=== PATIENT | female | born 1930 | race Caucasian/White ===

== ENCOUNTER 2019-10-05 12:06 | Emergency (ER) | payer MEDICARE ==
[~2019-10-05] VITALS: Ht 165.1 cm; Wt 76.0 kg
[2019-10-05 12:10] VITALS: BP 150/79
[2019-10-05 13:13] LABS: BASO # 0.1 x10^3/uL (0.0-0.2); BASO % 2 % (0-3); EOS # 0.1 x10^3/uL (0.0-0.7); EOS % 2 % (0-3); HEMOGLOBIN 13.5 g/dL (12.0-15.5); LYMPH # 0.9 x10^3/uL (1.0-4.8); LYMPH % 19 % (24-48); MEAN CORPUSCULAR HEMOGLOBIN 31 pg (25-35); MEAN CORPUSCULAR HGB CONC 33 g/dL (31-37); MEAN CORPUSCULAR VOLUME 94 fL (79-100); MONO # 0.2 x10^3/uL (0.0-1.1); MONO % 5 % (0-9); NEUT # 3.2 x10^3uL (1.8-7.7); NEUT % 71 % (31-73); PLATELET COUNT 126 x10^3/uL (140-400); RED BLOOD COUNT 4.35 x10^6/uL (3.50-5.40); RED CELL DISTRIBUTION WIDTH 15.3 % (11.5-14.5); WHITE BLOOD COUNT 4.5 x10^3/uL (4.0-11.0)
--- NOTE | 2019-10-05 13:15 | PHYS DOC ---
General Adult EDM: Chief Complaint: PSYCH EVALUATION HPI: HPI: 89 yo F PMH dementia, presents to the ed brought in by son with concern for worsening dementia, increased agitation at nighttime -discussions were made about snf/geriatric admission, son came to ed for "clearance." H/o UTI in early August. ROS: Unable to be obtained-h/o dementia Allergies: Allergies: Allergies Coded Allergies Type Severity Reaction Last Updated Verified No Known Drug Allergies 10/05/19 No Physical Exam: PE: Constitutional: Well developed, well nourished, no acute distress, non-toxic appearance. [] HENT: Normocephalic, atraumatic, bilateral external ears normal, oropharynx moist, no oral exudates, nose normal. [] Eyes: PERRLA, EOMI, conjunctiva normal, no discharge. [] Neck: Normal range of motion, no tenderness, supple, no stridor. [] Cardiovascular:Heart rate regular rhythm, no murmur [] Lungs & Thorax: Bilateral breath sounds clear to auscultation [] Abdomen: Bowel sounds normal, soft, no tenderness, no masses, no pulsatile masses. [] Skin: Warm, dry, no erythema, no rash. [] Back: No tenderness, no CVA tenderness. [] Extremities: No tenderness, no cyanosis, no clubbing, ROM intact, no edema. right forearm ecchymosis Neurologic: Alert and oriented X 3, normal motor function, normal sensory function, no focal deficits noted. [] Psychologic: Affect normal, judgement normal, mood normal. [] EKG: EKG: [] Radiology/Procedures: Radiology/Procedures: IMAGING REPORT Signed PATIENT: SANDEE MOJICA ACCOUNT: [id number] : 1930 LOCATION: ER AGE: 89 SEX: F EXAM STATUS: REG ER ORD. PHYSICIAN: MARCUS HERNANDEZ DO REASON: dementia? PROCEDURE: CT HEAD WO CONTRAST CT HEAD WO CONTRAST History: Reason: dementia / Spl. Instructions: / History: Comparison: None. Technique: Noncontrast CT imaging was performed of the head. Exposure: One or more of the following individualized dose reduction techniques were utilized for this examination: 1. Automated exposure control 2. Adjustment of the mA and/or kV according to patient size 3. Use of iterative reconstruction technique. Findings: No intracranial hemorrhage. No mass effect. No hydrocephalus. Moderate brain parenchymal volume loss. Mild foci of decreased aeration within the hemispheric white matter, most often due to chronic microvascular ischemia. Imaged orbits are unremarkable. Left sphenoid sinus osteoma. Mastoid air cells are clear. TMJ arthropathy. No acute calvarial fracture. Impression: 1. No acute intracranial abnormality. 2. Brain parenchymal volume loss. Electronically signed by: Jose D Liu DO (10/05/2019 1:48 PM) [id number] DICTATED AND SIGNED BY: JOSE D LIU DO DATE: 10/05/191347 CC: MADELEINE LARES MD; MARCUS HERNANDEZ DO ~ IMAGING REPORT Signed PATIENT: SANDEE MOJICA ACCOUNT: [id number] : 1930 LOCATION: ER AGE: 89 SEX: F EXAM STATUS: REG ER ORD. PHYSICIAN: MARCUS HERNANDEZ DO REASON: dementia/confusion PROCEDURE: CHEST AP ONLY CHEST AP ONLY History: Reason: dementia/confusion / Spl. Instructions: / History: Comparison: None. Findings: No consolidation or pleural effusion. Normal heart size. No pneumothorax. Postoperative changes left axilla. Bilateral glenohumeral DJD with calcified intra-articular bodies. Mild right basilar linear atelectasis. Prior granulomatous disease within the chest. Age-indeterminate right posterior 10th rib fracture. Chronic right ninth rib fracture. Impression: 1. No acute cardiopulmonary process. 2. Right posterior 10th rib fracture, likely chronic although age indeterminant. Recommend correlation with point tenderness. Electronically signed by: Jose D Liu DO (10/05/2019 1:42 PM) [id number] DICTATED AND SIGNED BY: JOSE D LIU DO DATE: 10/05/191341 CC: MADELEINE LARES MD; MARCUS HERNANDEZ DO ~ IMAGING REPORT Signed PATIENT: SANDEE MOJICA ACCOUNT: [id number] : 1930 LOCATION: ER AGE: 89 SEX: F EXAM STATUS: REG ER ORD. PHYSICIAN: MARCUS HERNANDEZ DO REASON: proximal bruising PROCEDURE: FOREARM RIGHT FOREARM RIGHT History: Reason: proximal bruising / Spl. Instructions: / History: Technique: 2 views right forearm. Comparison: None. Findings: Normal alignment. No fracture. Advanced first carpal metacarpal triscaphe DJD. First interphalangeal degenerative changes. Soft tissues unremarkable. Impression: 1. No acute osseous abnormality. 2. Advanced first carpometacarpal and triscaphe DJD. Electronically signed by: Jose D Liu DO (10/05/2019 1:39 PM) [id number] DICTATED AND SIGNED BY: JOSE D LIU DO DATE: 10/05/19 7186 CC: MADELEINE LARES MD; MARCUS HERNANDEZ DO ~ Course & Med Decision Making: Course & Med Decision Making Pertinent Labs and Imaging studies reviewed. (See chart for details) Encounter for clearance for inpatient geriatric psych admission -UA unremarkable. CT of the head shows no acute pathology. Patient with no posterior right rib pain-likely chronic right posterior rib fracture. I discussed findings with patient son at bedside. Will dc home with outpt neurology and pmd followup. COVID test pending for geriatric psych admission. Life-threatening processes were considered but are low suspicion at this time, given history and physical exam. All patient's questions were answered and pt was stable at time of discharge. Differential includes intracranial hemorrhage, diffuse axonal injury, spinal cord syndrome, unstable cervical fracture or SCIWORA, fractures or joint dislocations, neurovascular injuries, organ injury laceration, pneumothorax, pneumoperitoneum, pericardial tamponade, unstable pelvic fracture, compartment syndrome, flail chest or respiratory distress, burn injury or asphyxiation I spoken with the patient and her caregivers. I explained the patient's condition, diagnoses and treatment plan based on the information available to me at this time. I have answered the patient and her caregiver's questions and addressed any concerns. The patient and her caregivers have a good understanding of patient's diagnosis, condition and treatment plan as can be expected at this point. Vital signs have been stable. Patient's condition is stable and appropriate for discharge from the emergency department. Patient will pursue further outpatient evaluation with primary care physician or other designated or consulting physician as outlined in the discharge instru ctions. The patient and/or caregivers are agreeable to this plan of care and follow-up instructions have been explained in detail. The patient and/or caregivers have received these instructions in written form and have expressed an understanding of the discharge instructions. The patient and/or caregivers are aware that any significant change of condition or worsening of symptoms should prompt immediate return to this or the closest emergency department or call to 911. Adalid Disclaimer: Adalid Disclaimer: This electronic medical record was generated, in whole or in part, using a voice recognition dictation system. Departure Departure: Impression: Primary Impression: Dementia Additional Impression: Medical clearance for psychiatric admission Disposition: HOME/RESIDENCE PRIOR TO ADM Condition: STABLE Referrals: MADELEINE LARES MD (PCP) Patient Instructions: Dementia Additional Instructions: Madeleine Pena MD-neurology [address] [facility], [address] [address] Justification of Admission: Justification of Admission: Justification of Admission Dx: N/A MARCUS HERNANDEZ DO Oct 05, 2019 13:15
[2019-10-05 13:16] LABS: CALCIUM 8.9 mg/dL (8.5-10.1); GFR 52.2; POTASSIUM 4.1 mmol/L (3.5-5.1)
[2019-10-05 13:23] LABS: ALBUMIN 3.6 g/dL (3.4-5.0); ALBUMIN/GLOBULIN RATIO 1.1 (1.0-1.7); TOTAL BILIRUBIN 1.2 mg/dL (0.2-1.0)
[2019-10-05 13:27] LABS: BACTERIA,URINE 0 /HPF (0-FEW); BILIRUBIN,URINE NEG (NEG); CLARITY,URINE CLEAR; COLOR,URINE YELLOW; GLUCOSE,URINE NEG (NEG); NITRITE,URINE NEG (NEG); RBC,URINE 0 /HPF (0-2); SQUAMOUS EPITHELIAL CELL,UR FEW /LPF; UROBILINOGEN,URINE 0.2 mg/dL (0.2 mg/dL); WBC,URINE RARE /HPF (0-4)
--- NOTE | 2019-10-05 13:42 | RAD ---
FOREARM RIGHT History: Reason: proximal bruising / Spl. Instructions: / History: Technique: 2 views right forearm. Comparison: None. Findings: Normal alignment. No fracture. Advanced first carpal metacarpal triscaphe DJD. First interphalangeal degenerative changes. Soft tissues unremarkable. Impression: 1. No acute osseous abnormality. 2. Advanced first carpometacarpal and triscaphe DJD. Electronically signed by: Jose D Liu DO (10/05/2019 1:39 PM) [id number]
--- NOTE | 2019-10-05 13:45 | RAD ---
CHEST AP ONLY History: Reason: dementia/confusion / Spl. Instructions: / History: Comparison: None. Findings: No consolidation or pleural effusion. Normal heart size. No pneumothorax. Postoperative changes left axilla. Bilateral glenohumeral DJD with calcified intra-articular bodies. Mild right basilar linear atelectasis. Prior granulomatous disease within the chest. Age-indeterminate right posterior 10th rib fracture. Chronic right ninth rib fracture. Impression: 1. No acute cardiopulmonary process. 2. Right posterior 10th rib fracture, likely chronic although age indeterminant. Recommend correlation with point tenderness. Electronically signed by: Jose D Liu DO (10/05/2019 1:42 PM) [id number]
--- NOTE | 2019-10-05 13:51 | RAD ---
CT HEAD WO CONTRAST History: Reason: dementia / Spl. Instructions: / History: Comparison: None. Technique: Noncontrast CT imaging was performed of the head. Exposure: One or more of the following individualized dose reduction techniques were utilized for this examination: 1. Automated exposure control 2. Adjustment of the mA and/or kV according to patient size 3. Use of iterative reconstruction technique. Findings: No intracranial hemorrhage. No mass effect. No hydrocephalus. Moderate brain parenchymal volume loss. Mild foci of decreased aeration within the hemispheric white matter, most often due to chronic microvascular ischemia. Imaged orbits are unremarkable. Left sphenoid sinus osteoma. Mastoid air cells are clear. TMJ arthropathy. No acute calvarial fracture. Impression: 1. No acute intracranial abnormality. 2. Brain parenchymal volume loss. Electronically signed by: Jose D Liu DO (10/05/2019 1:48 PM) [id number]
== END 2019-10-05 15:29 | disposition home or self-care (01) ==
LOC: ER 12:06
DX: S50.11XA Contusion of right forearm, initial encounter (principal); Z00.8 Encounter for other general examination; F03.90 Unspecified dementia, unspecified severity, without behavioral disturbance, psychotic disturbance, mood disturbance, and anxiety; Z03.818 Encounter for observation for suspected exposure to other biological agents ruled out; Z87.440 Personal history of urinary (tract) infections; X58.XXXA Exposure to other specified factors, initial encounter; Y93.89 Activity, other specified; Y92.89 Other specified places as the place of occurrence of the external cause; Y99.8 Other external cause status
CPT/HCPCS: 36415; 70450; 71045; 73090; 80053; 81001; 84484; 85025; 99285; U0003

== ENCOUNTER 2019-10-10 09:00 | Inpatient (IN) | payer MEDICARE ==
[~2019-10-10] VITALS: Ht 167.6 cm; Wt 67.1 kg
[2019-10-10 10:32] VITALS: BP 101/65
[2019-10-10] MEDS ORDERED: MAG HYDROX/AL HYDROX/SIMETH 30 ML ORAL.SUSP PO PRN (11:00)
[2019-10-10] MEDS ORDERED: METHYL SALICYLATE/MENTHOL TOPICAL OINTMENT 57GM TUBE. TP PRN (11:00)
[2019-10-10] MEDS ORDERED: MAGNESIUM HYDROXIDE 2,400 MG/30 ML ORAL.SUSP. PO PRN (11:00)
[2019-10-10] MEDS ORDERED: ACETAMINOPHEN 325 MG TABLET PO PRN (11:30)
[2019-10-10] MEDS ORDERED: ACETAMINOPHN PO PRN (11:30)
[2019-10-10] MEDS ORDERED: [UNRECOGNIZED DRUG - OTHER] PO PRN (11:30)
[2019-10-10] MEDS ORDERED: LOPERAMIDE 2 MG/15 ML ORAL SUSP. PO PRN (11:30)
[2019-10-10] MEDS ORDERED: GUAIFEN PO PRN (11:30)
[2019-10-10] MEDS ORDERED: PHENYLEPH PO PRN (11:30)
[2019-10-10] MEDS ORDERED: DICLOFENAC SODIUM 1% TOPICAL GEL 100GM TUBE. TP PRN (11:30)
[2019-10-10] MEDS ORDERED: ESCITALOPRAM OX10 MG PO (11:40)
[2019-10-10] MEDS ORDERED: DICL100G18 TP (11:40)
[2019-10-10] MEDS ORDERED: ASPI325T8 PO (11:40)
[2019-10-10] MEDS ORDERED: ACET325T9 PO (11:40)
[2019-10-10] MEDS ORDERED: LOPE1LIQ7 PO (11:40)
[2019-10-10] MEDS ORDERED: [UNRECOGNIZED DRUG - CODE] PO (11:40)
[2019-10-10] MEDS ORDERED: ATEN-56 PO (11:40)
[2019-10-10] MEDS ORDERED: ALPR0.5T6 PO (11:40)
[2019-10-10] MEDS ORDERED: PRAV20TA2 PO (11:40)
[2019-10-10] MEDS ORDERED: FERR325T14 PO (11:40)
[2019-10-10] MEDS ORDERED: FAMO40TA4 PO (11:40)
[2019-10-10] MEDS ORDERED: ASCO500T4 PO (11:40)
[2019-10-10] MEDS ORDERED: guaiFENesin 300 MG/15 ML LIQUID PO PRN (12:30)
[2019-10-10 13:54] LABS: BASO # 0.1 x10^3/uL (0.0-0.2); BASO % 2 % (0-3); EOS # 0.1 x10^3/uL (0.0-0.7); EOS % 3 % (0-3); HEMATOCRIT 40.1 % (36.0-47.0); HEMOGLOBIN 13.4 g/dL (12.0-15.5); LYMPH # 0.8 x10^3/uL (1.0-4.8); LYMPH % 19 % (24-48); MEAN CORPUSCULAR HEMOGLOBIN 31 pg (25-35); MEAN CORPUSCULAR HGB CONC 33 g/dL (31-37); MEAN CORPUSCULAR VOLUME 94 fL (79-100); MONO # 0.3 x10^3/uL (0.0-1.1); MONO % 6 % (0-9); NEUT # 2.8 x10^3uL (1.8-7.7); NEUT % 70 % (31-73); PLATELET COUNT 129 x10^3/uL (140-400); RED BLOOD COUNT 4.29 x10^6/uL (3.50-5.40); RED CELL DISTRIBUTION WIDTH 14.8 % (11.5-14.5)
[2019-10-10 13:59] LABS: ALBUMIN 3.5 g/dL (3.4-5.0); ALBUMIN/GLOBULIN RATIO 1.1 (1.0-1.7); CALCIUM 8.7 mg/dL (8.5-10.1); CREATININE 1.1 mg/dL (0.6-1.0); GFR 46.8; MAGNESIUM 1.8 mg/dL (1.8-2.4); POTASSIUM 3.8 mmol/L (3.5-5.1); TOTAL PROTEIN 6.7 g/dL (6.4-8.2)
[2019-10-10 14:06] LABS: TOTAL BILIRUBIN 2.2 mg/dL (0.2-1.0)
--- NOTE | 2019-10-10 14:13 | NUR ---
Call placed to [facility] at [phone] to complete pre-authorization. Spoke to Meeta Chand who provided authorization number of [id number]. Lizzy is authorized thru 10/12/19. Next review date will be 10/13/19 in which a [facility] new accounts banking representative will contact Shira Delong [facility], to get update. Call reference number for today's call is the same as the authorization number.
[2019-10-10 15:17] VITALS: BP 123/75
--- NOTE | 2019-10-10 18:56 | NUR ---
Admission Note with Justification for Admission to [facility] Patient admitted to [facility] for protective oversight for emergency stabilization of acute psychiatric crisis. Pt admitted from: [place] Mode of arrival: POV Accompanied By: Family Precipitating behaviors that initiated intake and admission: it was reported that patient has been tearful, delusional, wanting to live with her parents, exit seeking, threatening to throw herself down the stairs in her wheelchair. Saying "nobody loves me" and "my hates me". She also was ramming her w/c into the doorway and physically aggressive towards staff. Paranoid that food and beverages are poisoned. Description of failure of out patient attempts at stabilization in previous setting list behavior and medication trials: PRN and scheduled ativan, 1:1 attention, re-direction. Behaviors and assessment findings upon admission: Patient was calm and pleasant on arrival. She was oriented to name and month and day. She stated it is currently 1934. She denies pain, uses a wheelchair to ambulate and needs assistance for transfers. She wears glasses. She has a bruise on her L ac, between her toes on her R foot and faded bruises on her back. She stated she has a history of falls. Lunch ordered and the patient was instructed about masks and current precautions. Belongings inventoried and vital signs obtained. Patient was cooperative. Plan: Admit for protective oversight for adjustment and stabilization of medications, behaviors and mood. Intense treatment regimen including groups, medication adjustments, therapy, consistent regimen for ADL's, self care, and sleep hygiene. Daily monitoring by Inpatient staff, Psychiatry, and Medical Physician.
--- NOTE | 2019-10-10 19:02 | NUR ---
Patient admittance COVID test was done and taken to lab..
--- NOTE | 2019-10-10 19:34 | CONS ---
DATE OF CONSULTATION: 10/10/2019 REASON FOR CONSULTATION: Medical management. HISTORY OF PRESENT ILLNESS: The patient is an 89-year-old female patient, a resident of [facility], who was [facility] on account of being tearful, delusional, thinks she needs to live with her parents, exit seeking, threatening to take her wheelchair down the stairs, agitated, thinks staff are lying to her, has insomnia. She defecated in her wheelchair, crying out nobody loves me. My hates me, repeatedly ramming wheelchair against doorway, physically aggressive towards staff, refusing to eat and drink because it is poisoned. All this in a background of major neurocognitive disorder. Medically, she is known to have high blood pressure, gastroesophageal reflux disease, anemia as well as hyperlipidemia. PAST PSYCHIATRIC HISTORY: Significant for depression and dementia. ALLERGIES: She has no known drug allergies. MEDICATIONS: She is currently on following medications: She is on ferrous sulfate 325 mg once a day, pravastatin sodium 20 mg daily, atenolol 25 mg twice a day, aspirin 325 mg once a day, diclofenac sodium 1 gram applied topically 4 times a day, Tylenol 325 mg every 6 hours, escitalopram oxalate 10 mg daily, alprazolam 0.5 mg twice a day, Mucus Relief Cold and Sinus liquid 10 mL every 6 hours, loperamide for Imodium 2 mg twice a day as needed, famotidine 40 mg at bedtime, ascorbic acid 500 mg daily. REVIEW OF SYSTEMS: The patient is extremely demented and does not really give any useful information. PHYSICAL EXAMINATION: GENERAL: When I examined her, she looked pale, no jaundice, cyanosis or thyromegaly. No jugular venous distention or limb edema. VITAL SIGNS: Her heart rate was 57, blood pressure was 123/75, temperature was 98, respiratory rate was 16, and oxygen saturation was 96% on room air. HEAD, EYES, EARS, NOSE AND THROAT: Showed normocephalic, atraumatic. NECK: Supple. CARDIAC: Normal first and second heart sounds. No gallop, rub or murmur. CHEST: Clear to auscultation. No crepitation or rhonchi. ABDOMEN: Distended, soft, nontender. NEUROLOGIC: She is awake, alert, but very confused. All her cranial nerves are intact. EXTREMITIES: She moves upper extremities without difficulty. She is apparently mostly wheelchair bound. Did complain of severe pain in her knee joint. LABORATORY DATA: Showed a serum sodium 144, potassium 3.8, chloride 106, bicarbonate 31, anion gap of 7, BUN 13, creatinine 1.1, estimated GFR was 46 mL per minute. Her glucose 139, calcium was 8.7, magnesium was 1.8. Total bilirubin 2.2. AST, ALT, alkaline phosphatase were normal. Total protein was 6.7, albumin was 3.5. Her white cell count was 4000, hemoglobin 13.4, hematocrit 40, MCV 94 and platelet count of 129,000 with normal manual differential. IMPRESSION: In summary, this is an 89-year-old female patient, resident at [facility], who was admitted to this unit on account of being tearful, delusional, thinks she needs to live with her parents, exit seeking, threatens to take her wheelchair down the stairs, agitated, thinks staff are lying to her, has insomnia, defecated on wheelchair, crying out, nobody loves me. My hates me, repeatedly ramming her wheelchair against the doorway, physically aggressive towards staff, refusing to eat and drink as it is poisoned, all this in a major neurocognitive disorder. She is here for inpatient psychiatric stabilization. Medically, she seems to be all in all stable. Her vital signs are all within normal range. Her labs also showed that she has apart from thrombocytopenia, all her other lab works are well within acceptable range for her age. Her medication also seemed to be appropriate. She has other lab works that are still pending at the time of this dictation and to be reviewed. Thank you, Dr. Allen for allowing me to participate in the care of this patient. NI ALBERTO MD DR: MIKEL/alvaro JOB#: [id number] / [id number]
[2019-10-10] MEDS: FAMOTIDINE 20 MG TABLET PO SCH (21:35)
[2019-10-10] MEDS: ATENOLOL 25 MG TABLET PO SCH (21:35)
[2019-10-10] MEDS: ATORVASTATIN CALCIUM 10 MG TABLET. PO SCH (21:35)
--- NOTE | 2019-10-10 21:59 | PDOC ---
Exam Note: [place] Note: Please also refer to the separate dictated note~for this date of service dictated separately.~Patient seen individually. Discussed the patient with Nursing staff reviewed the chart.~Reviewed interim history and current functioning. Reviewed vital signs,~Labs/ Radiology~and current medications noted below. Continue current treatment with the changes noted in the dictated addendum note Assessment: Vital Signs/I&O: Vital Signs Date Time Temp Pulse Resp B/P (MAP) Pulse Ox O2 Delivery O2 Flow Rate FiO2 10/10/19 21:35 57 123/75 10/10/19 15:17 98.0 16 96 Labs: Laboratory Tests Test 10/10/19 13:30 White Blood Count 4.0 x10^3/uL (4.0-11.0) Red Blood Count 4.29 x10^6/uL (3.50-5.40) Hemoglobin 13.4 g/dL (12.0-15.5) Hematocrit 40.1 % (36.0-47.0) Mean Corpuscular Volume 94 fL (79-100) Mean Corpuscular Hemoglobin 31 pg (25-35) Mean Corpuscular Hemoglobin Concent 33 g/dL (31-37) Red Cell Distribution Width 14.8 % (11.5-14.5) H Platelet Count 129 x10^3/uL (140-400) L Neutrophils (%) (Auto) 70 % (31-73) Lymphocytes (%) (Auto) 19 % (24-48) L Monocytes (%) (Auto) 6 % (0-9) Eosinophils (%) (Auto) 3 % (0-3) Basophils (%) (Auto) 2 % (0-3) Neutrophils # (Auto) 2.8 x10^3uL (1.8-7.7) Lymphocytes # (Auto) 0.8 x10^3/uL (1.0-4.8) L Monocytes # (Auto) 0.3 x10^3/uL (0.0-1.1) Eosinophils # (Auto) 0.1 x10^3/uL (0.0-0.7) Basophils # (Auto) 0.1 x10^3/uL (0.0-0.2) Sodium Level 144 mmol/L (136-145) Potassium Level 3.8 mmol/L (3.5-5.1) Chloride Level 106 mmol/L (98-107) Carbon Dioxide Level 31 mmol/L (21-32) Anion Gap 7 (6-14) Blood Urea Nitrogen 13 mg/dL (7-20) Creatinine 1.1 mg/dL (0.6-1.0) H Estimated GFR (Cockcroft-Gault) 46.8 BUN/Creatinine Ratio 12 (6-20) Glucose Level 139 mg/dL (70-99) H Calcium Level 8.7 mg/dL (8.5-10.1) Magnesium Level 1.8 mg/dL (1.8-2.4) Total Bilirubin 2.2 mg/dL (0.2-1.0) H Aspartate Amino Transferase (AST) 17 U/L (15-37) Alanine Aminotransferase (ALT) 21 U/L (14-59) Alkaline Phosphatase 52 U/L (46-116) Total Protein 6.7 g/dL (6.4-8.2) Albumin 3.5 g/dL (3.4-5.0) Albumin/Globulin Ratio 1.1 (1.0-1.7) Current Medications: Meds: Current Medications Medications (Trade) Dose Ordered Sig/Carlos Route PRN Reason Start Time Stop Time Status Last Admin Dose Admin Atenolol (Tenormin) 25 mg BID PO 10/10/19 21:00 10/10/19 21:35 Famotidine (Pepcid) 20 mg QHS PO 10/10/19 21:00 10/10/19 21:35 Atorvastatin Calcium (Lipitor) 5 mg QHS PO 10/10/19 21:00 10/10/19 21:35 I have reviewed the current psychotropics carefully including drug interactions. Risk benefit ratio favors no change other than as noted in my dictated progress note. Diagnosis: Problems: (1) Major neurocognitive disorder due to Alzheimer's disease, probable, with behavioral disturbance RAMEZ DIXON MD Oct 10, 2019 21:59
--- NOTE | 2019-10-10 23:32 | NUR ---
Nursing Note The patient was located in her room when approached by this nurse for her assessment and medication pass. The patient was very tearful. When asked why she was upset the patient was unable two coherently answer. This nurse was able to talk with the patient and eventually the patient was calm enough that she was able to take her medication whole. The patient is currently sleeping in her bed.
[2019-10-11 05:09] LABS: HEMOGLOBIN A1C 5.3 % (4.8-5.6); THYROXINE 6.2 ug/dL (4.5-12.0)
[2019-10-11 06:30] VITALS: BP 176/93
[2019-10-11] MEDS: ACETAMINOPHEN 325 MG TABLET PO PRN (06:43)
--- NOTE | 2019-10-11 08:17 | RAD ---
PQRS Compliance Statement: One or more of the following individualized dose reduction techniques were utilized for this examination: 1. Automated exposure control 2. Adjustment of the mA and/or kV according to patient size 3. Use of iterative reconstruction technique CT HEAD WITHOUT CONTRAST History: Reason: admission screening major neurocognitive d/o / Comparison: CT head without contrast, October 05, 2019. Technique: Axial images are obtained of the head from the skull base through the vertex without IV contrast. Findings: No mass-effect, midline shift, extra-axial fluid collection, hemorrhage, or obvious acute infarction is identified. Basilar cisterns are patent. The ventricles and sulci are prominent, consistent with age-related cerebral atrophy. There is moderate periventricular white matter hypoattenuation. This is a nonspecific finding but is commonly due to chronic small vessel ischemic disease. Bone windows demonstrate no acute calvarial abnormality. Mild mucosal thickening left sphenoid sinus. There is a partially calcified polyp in the left sphenoid sinus. Mastoid air cells are well aerated. IMPRESSION: 1. No acute intracranial abnormality. 2. Age-related cerebral atrophy and periventricular white matter changes probably due to chronic small vessel ischemic disease. Electronically signed by: Bhanu Garza MD (10/11/2019 8:14 AM) [id number]
[2019-10-11] MEDS: ASPIRIN 325 MG TABLET PO SCH (09:40)
[2019-10-11] MEDS: ASCORBIC ACID 500 MG TABLET PO SCH (09:40)
[2019-10-11] MEDS: FERROUS SULFATE 325 MG TABLET. PO SCH (09:40)
[2019-10-11] MEDS: ATENOLOL 25 MG TABLET PO SCH ×2 (09:41→19:39)
[2019-10-11] MEDS: CITALOPRAM 20 MG TABLET. PO SCH (09:41)
--- NOTE | 2019-10-11 10:00 | NUR ---
Patient compliant with medications, and is sitting at a table near her door. She is calm and cooperative. Nurse and patient talked about sewing and embroidery. Patient is attention seeking when no staff is nearby.
--- NOTE | 2019-10-11 10:15 | NUR ---
ACTIVITY THERAPY ASSESSMENT completed based on notes, observation, and interview. Pt was sitting in the hallway speaking with STILL OPERATOR GIN. AT asked pt if she mind if she asks a few questions in the pt's room. Pt was compliant and moved herself into her room. Pt was pleasant, sociable, and calm during assessment. Pt enjoys painting, coloring, watching TV, and sewing. Pt doesn't like to draw or read. Pt was unaware of what hospital she was in but was able to say she was in [place]. Pt believes her reason of admission is to help with her speech. Pt believes before admission she came from her home in [place]. Pt enjoys family reunions, baseball games, and marbles with her family. Pt states that she was and had two children, a boy and a girl. Pt said that she enjoys baseball games, popcorn, and coke with her friend. Pt reported some stress on 10/11/19 in the morning. Pt said that she is just ready for the doctor to tell her she can go home. AT explained she understands it is hard to be here and the patient agreed. AT asked the pt what she did this morning to relieve her stress and she said she believed she ate something. Pt also stated she really enjoys Dr. De La Torre. AT asked the pt what barriers might keep her form participating in leisure activities. Pt stated rain, dust, player failed to come, and the heat. Pt was referring to baseball games that she enjoys attending. AT then asked about pt's wheelchair and asked if she has some instability. Pt reports she can't walk without her wheelchair and also reported her wheelchair is uncomfortable. AT asked if pt has anything else she wanted to talk to AT about and pt spoke about her family. Pt said she has triplet sisters and is a child of ten children that are all still living. 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 Pt explained that school was hard because they didn't have enough time for homework. Pt said that her two children are both secretaries and live in [place]. Initial goal aimed to increase stress management/relaxation and motivation skills. Pt will participate in at least three individual or group Activity Therapy sessions per week.
--- NOTE | 2019-10-11 12:43 | HP ---
ADMIT DATE: 10/10/2019 PSYCHIATRIC ADMISSION HISTORY/EVALUATION This late entry 10/10/2019 covers elements not covered in my initial note. Discussed with TERRY Hargrove. Previously discussed with Yolanda Gonzalez, hospice coordinator. IDENTIFYING DATA: The patient is an 89-year-old female referred to us from [facility] referred by primary care physician on account of worsening tearful episodes being delusional. She thinks she needs to live with her parents. She has been exit seeking, threatening to take her wheelchair down the stairs. She has been agitated, believes staff are lying to her, has had marked insomnia, defecated on her wheelchair in anger. She has had crying out spells repeatedly stating "no one loves me." She states that her "hates me." She has been repeatedly ramming her wheelchair against the door, very physically aggressive towards staff, was refusing to eat and drink because she believes it is poison. She has failed outpatient psychiatric interventions resulting in this referral. CHIEF COMPLAINT: "No." HISTORY OF PRESENT ILLNESS: The patient has a history of dementia Alzheimer's vascular, worsening symptoms of depression, paranoia, psychosis. She has been increasingly agitated, restless, delusional, disruptive, unmanageable at the facility. She is referred for inpatient psychiatric stabilization. PAST PSYCHIATRIC HISTORY: As above. MEDICAL HISTORY: Hypertension, GERD, hyperlipidemia, anemia. FAMILY HISTORY: Noncontributory. CURRENT PSYCHOTROPICS: Xanax 0.5 mg b.i.d., Lexapro 10 mg a day. SOCIAL HISTORY: No alcohol, drug abuse, physical, sexual or elder abuse history is noted. Not known to be a perpetrator. REACTION TO HOSPITALIZATION: The patient oblivious of this. MENTAL STATUS EXAMINATION: As I met with the patient on telehealth round she was extremely tearful, labile in her mood. PLAN: Admit to Geropsychiatry Unit at [facility]. I will see the patient daily individually from a psychiatric standpoint. Medical followup with Dr. Coates/Dr. Patterson. Continue the patient on her current psychotropics. If a CT head has not been done recently, we will go ahead and do one once behaviorally she is stable. We will add Zyprexa 2.5 mg q. 2 hours p.r.n. psychosis, agitation, max 10 mg in 24 hours. Continue Xanax 0.5 b.i.d., Lexapro [address] head if not done recently. ESTIMATED LENGTH OF STAY: 10-12 days. DISPOSITION: Plans back to shelter when stable. MAN Flynn DIXON MD DR: ALEXANDER/alvaro JOB#: [id number] / [id number]
[2019-10-11 14:30] LABS: THYROID STIM HORMONE (TSH) 0.971 uIU/mL (0.358-3.740)
[2019-10-11 15:52] VITALS: BP 163/83
--- NOTE | 2019-10-11 16:45 | NUR ---
PSYCHOSOCIAL ASSESSMENT ADMISSION DATE: 10/10/19 CONTACT INFORMATION: DPOA/Guardian Contact Name: Srini Agustin Contact Address: [place] [address] Contact Phone #: ETHNIC ORIGIN: REASONS FOR ADMISSION: ADDITIONAL ADMISSION COMMENTS: According to the intake, pt is tearful, delusional, and thinks she needs to live with her parents. threatens to take her w/c down the stairs, agitated, thinks staff are lying to her insomnia, defecated on w/c, hitting, pinching, refusing to eat and drink at times REASON FOR ADMISSION IN PATIENT/FAMILY'S OWN WORDS: Family understands that this is a decrease in cognition and increase in behaviors due to her dx. PATIENT/FAMILY EXPECTATIONS FOR ADMISSION: Medication assessment, behavioral mgmt, return to [facility] LIVING SITUATION: Patient lives with: [facility] Other living arrangements: Contact Name: [facility] Contact Address: [address] [place] [address]; [place] [address] Contact Phone #: Contact Fax #: FAMILY RELATIONS: Marital Status: # of Marriages: 2 # of Children: 2 [facility] Family Support: Cooperative Involved in DC Planning Additional Comments r/t Family: Pt has been two times. Pt first , she was to for 15 years and in the mid-. She then her 2nd who ended up passing away in 2002. Pt has 1 biological son and claims a step-dtr who lives in [place]. SIGNIFICANT PSYCHIATRIC/MEDICAL HISTORY: Psychiatric/Treatment History: This is pt first psychiatric stay on [facility]. Pt has a previous dx of Depression and Dementia Pertinent Family History: None noted HISTORICAL DATA: Childhood Environment: Nurturing Childhood Environment Additional Comments: Pt was born in [place], [place] with her mother being a SAHM and her father who farmed all day. Pt is 1 of 10 children with 2 brothers who have passed; she has 5 sisters living and 2 more brother living. 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 service: N Confucianism background: Pt used to attend [employer]oroast[employer] but "covoid put an end to that". Sexual orientation: heterosexual Educational Level: Pt graduated high school (12th grade). Past/Present Interests/Hobbies: puzzles word searches decorative stuff; used to do embroidery but cannot as her hands hurt her Financial support/resources: Social Security Monthly income: Person handling finances: Pt son is financial DPOA Do you have a history of legal problems: N Cultural considerations: None SOCIAL RELATIONSHIPS-CURRENT/PAST: Psychiatrist: None PCP: Dr. Fito Foote Counselor/Therapist: N/a [facility]: N/a Support Group: N/a Mfts/[employer] Technician: N/a Other relationships: N/a STRENGTHS & WEAKNESSES: Patient's strengths: Good family support Stable living arrange Other patient strengths: Patient's weaknesses: Impulsive Physically Aggressive Other patient weaknesses: PRELIMINARY PLAN OF TREATMENT: Preliminary plan: Dec. Hallucination/Delus Medication Stabilization Monitor Med Effects Dec. Outbursts Dec. Aggression Other preliminary treatment comments: DISCHARGE PLANNING: Discharge planning/disposition: Current Living Arrange. Additional discharge needs identified: Psychiatrist ADDITIONAL INFORMATION: Other Pertinent Data: SW completed PSA with pt son who discussed pt being delusional is something that is not new. She has always asked about her parents and even mistakes the grandchildren for her own children; but the son has not seen pt beg staff to make sure "no one kills her", which SW explained to him that pt was doing on the unit prior to SW calling him. SW attempted to call pt and assure her that no one was going to hurt her, but she appeared to be ruminating over the fact that she was going to here. Pt son reports that pt does not recognize him but he still attempts to contact her and send pictures. He believes that at one point and time, pt was able to leave and do thing but with Covoid, they don't allow anything that could be considered as "unnecessary". Pt son reports that pt has not been formally dx or did testing wtih anyone. The primary care felt like she had it based on his assessment. WILMAR will continue to keep son up to date, as he cannot participate during treatment team with his work schedule. WILMAR will also keep [facility] updated. Pt has an insurance review due on Wednesday10/13/2019
--- NOTE | 2019-10-11 18:26 | NUR ---
patient standing up unassisted and attempted to hit staff. Patient in west hallway, pleading with staff to let her out, then striking out the next minute. She is rattling all of the door handles and was pushing the nurses station door. She thinks her dad is going to come call the police on the nurses. Patient is ramming her wheelchair into the chair in the hallway to move it down the fleming. She then stops to say "please" and then yells at nurse again.
[2019-10-11] MEDS: FAMOTIDINE 20 MG TABLET PO SCH (19:39)
[2019-10-11] MEDS: ATORVASTATIN CALCIUM 10 MG TABLET. PO SCH (19:40)
--- NOTE | 2019-10-11 22:08 | PDOC ---
Exam Note: [place] Note: Please also refer to the separate dictated note~for this date of service dictated separately.~Patient seen individually. Discussed the patient with Nursing staff reviewed the chart.~Reviewed interim history and current functioning. Reviewed vital signs,~Labs/ Radiology~and current medications noted below. Continue current treatment with the changes noted in the dictated addendum note Assessment: Vital Signs/I&O: Vital Signs Date Time Temp Pulse Resp B/P (MAP) Pulse Ox O2 Delivery O2 Flow Rate FiO2 10/11/19 21:45 98.5 96 10/11/19 19:39 84 163/83 10/11/19 15:52 16 I & O 10/10/19 10/10/19 10/11/19 15:00 23:00 07:00 Intake Total 360 ml 320 ml Balance 360 ml 320 ml Current Medications: Meds: Current Medications Medications (Trade) Dose Ordered Sig/Carlos Route PRN Reason Start Time Stop Time Status Last Admin Dose Admin Ascorbic Acid (Vitamin C) 500 mg DAILY PO 10/11/19 09:00 10/11/19 09:40 Aspirin (Elysia Aspirin) 325 mg DAILY PO 10/11/19 09:00 10/11/19 09:40 Ferrous Sulfate (Feosol) 325 mg DAILY PO 10/11/19 09:00 10/11/19 09:40 Citalopram Hydrobromide (CeleXA) 20 mg DAILY PO 10/11/19 09:00 10/11/19 09:41 Olanzapine (ZyPREXA ZYDIS) 2.5 mg PRN Q2HR PRN PO PSYCHOSIS 10/11/19 18:30 10/11/19 19:40 I have reviewed the current psychotropics carefully including drug interactions. Risk benefit ratio favors no change other than as noted in my dictated progress note. Diagnosis: Problems: (1) Dementia in Alzheimer's disease with depression (2) Dementia, vascular, with depression (3) Anxiety disorder (4) Impulse control disorder (5) Major neurocognitive disorder due to Alzheimer's disease, probable, with behavioral disturbance RAMEZ DIXON MD Oct 11, 2019 22:08
--- NOTE | 2019-10-11 23:21 | NUR ---
Pt in [facility] at shift change. Pt irritable, resistive, agitated, and aggressive. Pt banging/shaking doors, rattling door handles, yelling, delusional- looking for her parents. Pt cooperative with assessment and compliant with medications administered whole on a spoon. PRN Zydis administered with HS medications.
[2019-10-12 05:42] VITALS: BP 148/82
[2019-10-12] MEDS: ATENOLOL 25 MG TABLET PO SCH ×2 (09:14→19:43)
[2019-10-12] MEDS: ASPIRIN 325 MG TABLET PO SCH (09:14)
[2019-10-12] MEDS: ASCORBIC ACID 500 MG TABLET PO SCH (09:14)
[2019-10-12] MEDS: FERROUS SULFATE 325 MG TABLET. PO SCH (09:14)
[2019-10-12] MEDS: CITALOPRAM 20 MG TABLET. PO SCH (09:14)
--- NOTE | 2019-10-12 12:45 | NUR ---
Patient crying in hallway, unable to be consoled. She is agitated and is exit seeking, saying she has to get home. Nurse asked her what she was crying about and patient refused to tell her. Patient has a pile of used tissues on the table and is sitting in the hallway near the [facility] nurses station. PRN zyprexa administered per order for agitation/psychosis. Will continue to monitor.
[2019-10-12 15:36] VITALS: BP 114/65
--- NOTE | 2019-10-12 15:50 | NUR ---
Patient has been intermittently crying throughout the afternoon. She is unable to state what is upsetting her. Patient told PAPERHANGER ASSISTANT she needed to go to school because she was going to be late. Patient then asked nurse where the airplane was and why it was late. Nurse stated that it was due to weather delays, patient seemed satisfied with that answer. Patient later observed sitting in chair calmly coloring.
[2019-10-12] MEDS ORDERED: SERTRALINE 25 MG TABLET. PO SCH (17:00)
[2019-10-12] MEDS: QUEtiapine 25 MG TABLET. PO SCH (17:30)
--- NOTE | 2019-10-12 17:32 | NUR ---
Patient tearful and accusing this nurse of "lifting her" and "scaring her". Patient is crying uncontrollably and sitting in her wheelchair in the doorway. Nurse spoke to patient and she was not redirectable. She continues to insist that staff is scaring her and that she wants this nurse to call her mom and tell her she is in this hospital. PRN zydis provided per order for agitation/psychosis. Patient also received first dose of scheduled seroquel. Will continue to monitor.
--- NOTE | 2019-10-12 18:00 | TX PLAN ---
Interdisciplinary Tx Plan Admission Information Oct 10, 2019 at 09:29 Legal Status (on Admission): Voluntary DPOA/Guardian Name: Srini Agustin Contact Other Contact Name: [facility] Other Contact Verified Code Status: DNR Allergies: Coded Allergies: No Known Drug Allergies (Unverified , 10/05/19) Diagnoses Primary Diagnosis: Major Neurocognitive D/O Reasons for Admission: Aggressive, Delusions, Agitated, Confusion/Disoriented, Poor impulse control Problem in Patient's Words: Family understands that this is a decrease in cognition and increase in behaviors due to her dx. Additional Admission Comments: According to the intake, pt is tearful, delusional, and thinks she needs to live with her parents. threatens to take her w/c down the stairs, agitated, thinks staff are lying to her, insomnia, defecated on w/c, hitting, pinching, refusing to eat and drink at times Problems Active Problems: tearful Delusional agitated aggressive Inactive Problems: Medication non-compliance Pt Strengths/Limitations Ability for [place]: Poor Cognitive Functioning/Ability: Poor Communication Skills/Ability: Fair Financial Resources: Fair Insight/Judgement: Poor Intellectual Ability: Poor Physical Health: Fair Social Skills: Fair Stability in Family: Good Stability in School/Work: Poor Verbal Skills: Fair Discharge Criteria Discharge Criteria: No need for close observ., Adequate arrangements @DC, Improved behavior, Improved mood/thought Preliminary Discharge Plan Preliminary DC Plan: Current Living Arrange. Special Precautions Fall Risk: Moderate Initial D/C Plan Pt to return back to [facility] once stable Identified Discharge Needs: Psychiatrist Currently Utilized Resources Currently Utilized Resources/P: Primary Care Physician Referrals Community Resources: Referral for contiued psychiatric services Identified Problems/Hx/Goals Objectives/Short-Term Goals Short Term Goals: Dec. Aggression, Dec. Hallucination/Delus, Dec. Outbursts, Medication Stabilization, Monitor Med Effects Short Term Goals in Patient's: "please don't let them kill me. They are trying to kill us here". Interventions/Frequency Staff Interventions/Frequency&: Psychiatrist to assess pt at least 3x per week. Social Work to assess pt at least 2x per week. 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 Education: Pt graduated high school (12th grade). Community Follow-up PCP Update facility throughout pt stay. Treatment Plan Explained Patient/Railroader had this treatment plan explained to him/her as indicated by the signature below and has been given the opportunity to ask questions and make suggestions: Date: Patient/Railroader Signature: Additional Comments Pt since admission pt has agitated, resistive, aggressive, banging/shaking doors, rattling door handles, yelling. Pt is eating roughly 75% and sleeping 6.5 hours. Pt will be started on Zoloft 50mg and Seroquel 12.5mg at noon and 1700. SOHA YEE Oct 12, 2019 18:00
[2019-10-12] MEDS: FAMOTIDINE 20 MG TABLET PO SCH (19:43)
[2019-10-12] MEDS: ATORVASTATIN CALCIUM 10 MG TABLET. PO SCH (19:44)
[2019-10-12] MEDS: ALPRAZolam 0.5 MG TABLET PO PRN (19:44)
--- NOTE | 2019-10-12 22:05 | PDOC ---
Exam Note: [place] Note: Please also refer to the separate dictated note~for this date of service dictated separately.~Patient seen individually. Discussed the patient with Nursing staff reviewed the chart.~Reviewed interim history and current functioning. Reviewed vital signs,~Labs/ Radiology~and current medications noted below. Continue current treatment with the changes noted in the dictated addendum note Assessment: Vital Signs/I&O: Vital Signs Date Time Temp Pulse Resp B/P (MAP) Pulse Ox O2 Delivery O2 Flow Rate FiO2 10/12/19 20:25 97.7 95 95 10/12/19 19:43 114/65 10/12/19 15:36 20 I & O 10/11/19 10/11/19 10/12/19 15:00 23:00 07:00 Intake Total 440 ml 220 ml Balance 440 ml 220 ml Current Medications: Meds: Current Medications Medications (Trade) Dose Ordered Sig/Carlos Route PRN Reason Start Time Stop Time Status Last Admin Dose Admin Quetiapine Fumarate (SEROquel) 12.5 mg 0900,1700 PO 10/12/19 17:00 10/12/19 17:30 I have reviewed the current psychotropics carefully including drug interactions. Risk benefit ratio favors no change other than as noted in my dictated progress note. Diagnosis: Problems: (1) Major neurocognitive disorder due to Alzheimer's disease, probable, with behavioral disturbance (2) Anxiety disorder (3) Impulse control disorder (4) Dementia, vascular, with depression (5) Dementia in Alzheimer's disease with depression RAMEZ DIXON MD Oct 12, 2019 22:05
--- NOTE | 2019-10-12 22:37 | NUR ---
Location of Patient during Assessment: Pt lying in bed at shift change but shortly after was attempting to get out of bed without assist. Pt agitated and resistive when staff attempted to assist her. Pt was moved to [facility] for de-escalation and safety. Behaviors Mood and Affect this shift: Pt disorganized, anxious, irritable, and resistive. Labile mood and affect. Pt also delusional- she believes that someone has been hitting/beating her up today. Medication Compliant: Pt compliant with medications administered whole. PRN Xanax administered for anxiety/agitation. Assessment Compliant: Pt cooperative and compliant with assessment but resistive with shower and staff attempts to assist her. Response After Interventions: Pt irritable but did allow staff to assist her with HS cares.
[2019-10-13 07:04] VITALS: BP 172/91
[2019-10-13] MEDS: FERROUS SULFATE 325 MG TABLET. PO SCH (08:13)
[2019-10-13] MEDS: ASCORBIC ACID 500 MG TABLET PO SCH (08:13)
[2019-10-13] MEDS: ASPIRIN 325 MG TABLET PO SCH (08:13)
[2019-10-13] MEDS: ATENOLOL 25 MG TABLET PO SCH ×2 (08:13→20:32)
[2019-10-13] MEDS: QUEtiapine 25 MG TABLET. PO SCH ×2 (08:13→16:22)
[2019-10-13] MEDS: SERTRALINE 50 MG TABLET. PO SCH (08:15)
[2019-10-13] MEDS: ALPRAZolam 0.5 MG TABLET PO PRN (08:54)
[2019-10-13] MEDS: ACETAMINOPHEN 325 MG TABLET PO PRN (08:54)
--- NOTE | 2019-10-13 11:24 | NUR ---
Dr Patterson notified of vit D 18.8. No new orders noted.
--- NOTE | 2019-10-13 12:10 | NUR ---
WILMAR completed pt concurrent review with Honorio. WILMAR was able to note pt behaviors and the medication changes with days being covered for 10/12-10/14 with an update on 10/15. The [employer] customer sales representative will call WILMAR on Wednesday at 1130 to complete the concurrent review.
[2019-10-13 16:18] VITALS: BP 130/70
--- NOTE | 2019-10-13 17:02 | NUR ---
Pt slept thru breakfast. Got up mid morning. Has been compliant with meds. Restless at times. Prn's utilized.
[2019-10-13] MEDS: ATORVASTATIN CALCIUM 10 MG TABLET. PO SCH (20:31)
[2019-10-13] MEDS: FAMOTIDINE 20 MG TABLET PO SCH (20:31)
--- NOTE | 2019-10-13 22:23 | PDOC ---
Exam Note: [place] Note: Please also refer to the separate dictated note~for this date of service dictated separately.~Patient seen individually. Discussed the patient with Nursing staff reviewed the chart.~Reviewed interim history and current functioning. Reviewed vital signs,~Labs/ Radiology~and current medications noted below. Continue current treatment with the changes noted in the dictated addendum note Assessment: Vital Signs/I&O: Vital Signs Date Time Temp Pulse Resp B/P (MAP) Pulse Ox O2 Delivery O2 Flow Rate FiO2 10/13/19 20:50 97.3 95 10/13/19 20:32 63 130/70 10/13/19 16:18 20 I & O 10/12/19 10/12/19 10/13/19 15:00 23:00 07:00 Intake Total 300 ml 220 ml Balance 300 ml 220 ml Current Medications: Meds: Current Medications Medications (Trade) Dose Ordered Sig/Carlos Route PRN Reason Start Time Stop Time Status Last Admin Dose Admin Sertraline HCl (Zoloft) 50 mg DAILY PO 10/13/19 09:00 10/13/19 08:15 I have reviewed the current psychotropics carefully including drug interactions. Risk benefit ratio favors no change other than as noted in my dictated progress note. Diagnosis: Problems: (1) Major neurocognitive disorder due to Alzheimer's disease, probable, with behavioral disturbance (2) Anxiety disorder (3) Impulse control disorder (4) Dementia, vascular, with depression (5) Dementia in Alzheimer's disease with depression RAMEZ DIXON MD Oct 13, 2019 22:23
--- NOTE | 2019-10-13 22:34 | PN ---
DATE: 10/11/2019 PSYCHIATRIC PROGRESS NOTE This late entry 10/11/2019 covers the elements not covered in my initial note. SUBJECTIVE: The patient was seen individually in the evening of 10/11/2019. The patient remains confused, anxious, restless, paranoid and believes staff members are trying to kill her. No CV, , pulmonary, eye system symptoms on review. Gait is unsteady, in wheelchair. She is banging at the nursing station window and agitated, restless, tearful, labile in her mood. REVIEW OF SYSTEMS: Ambulation impaired, in wheelchair. No CV, , pulmonary, eye, ENT system symptoms on review. Reliability poor. MENTAL STATUS EXAM: Oriented to herself. Insight, judgment, recent and remote memory, attention, concentration, fund of knowledge poor, consistent with her diagnosis mentioned in my initial note. PLAN: No change from initial note. MAN Flynn DIXON MD DR: ALEXANDER/alvaro JOB#: [id number] / [id number]
--- NOTE | 2019-10-13 22:34 | PN ---
DATE: 10/12/2019 PSYCHIATRIC PROGRESS NOTE This late entry 10/12/2019 covers elements not covered in my initial note. SUBJECTIVE: I met with the patient evening of 10/12/2019. The patient was staffed at a treatment team meeting with the entire team with TERRY Hargrove, [facility] social service staff and Yolanda Gonzalez, social service staff. The patient remains paranoid, anxious, restless, agitated. She believes people are trying to kill her. She was quite agitated previous evening, pleasant in the morning. At one point, she was punching and swinging at staff previous night. She believes her parents are here to help her. REVIEW OF SYSTEMS: No CV, , pulmonary, eye system symptoms on review. Reliability poor. Gait unsteady, in wheelchair. MENTAL STATUS EXAM: Oriented to herself. Insight, judgment, recent and remote memory, attention, concentration, fund of knowledge poor, consistent with her diagnosis mentioned in my initial note. PLAN: No change from initial note. We will go ahead and change Celexa from 20 mg daily to Zoloft 50 mg a day, start Seroquel 12.5 mg 9 a.m., 5:00 p.m. Continue rest unchanged. Zyprexa is p.r.n. MAN Flynn DIXON MD DR: ALEXANDER/alvaro JOB#: [id number] / [id number]
--- NOTE | 2019-10-13 23:00 | NUR ---
Location of Patient during Assessment: Pt sitting quietly in hallway with group of peers while socially distancing and wearing mask. Behaviors Mood and Affect this shift: Pt calm this evening, no agitation or aggression noted. Pt slightly resistive with HS cares but easily calmed. Medication Compliant: Pt compliant with medications administered whole. No PRN's administered thus far this shift. Assessment Compliant: Pt cooperative and compliant with assessment. Response After Interventions: Pt calm and cooperative. Pt currently resting quietly in bed.
--- NOTE | 2019-10-13 23:23 | PN ---
DATE: 10/13/2019 PSYCHIATRIC PROGRESS NOTE This note covers elements not covered in my initial note of 10/13/2019. SUBJECTIVE: The patient was seen on telehealth rounds in the evening. Per TERRY Yeung, the patient was quite resistant with showers previous night. Her son was contacted and indicated that at home, she generally takes a sponge bath. She was drowsy in the morning, compliant with medications, much calmer when I met her in the evening on telehealth rounds, not agitated, screaming, yelling or banging on the doors. REVIEW OF SYSTEMS: Ambulation impaired with wheelchair. No CV, , pulmonary, eye system symptoms on review. Reliability poor. MENTAL STATUS EXAM: Oriented to herself. Insight, judgment, recent and remote memory, attention, concentration, fund of knowledge poor, consistent with her diagnosis mentioned in my initial note. PLAN: No change from initial note. MAN Flynn DIXON MD DR: ALEXANDER/alvaro JOB#: [id number] / [id number]
[2019-10-14 05:58] VITALS: BP 171/93
[2019-10-14] MEDS: ASPIRIN 325 MG TABLET PO SCH (08:49)
[2019-10-14] MEDS: ASCORBIC ACID 500 MG TABLET PO SCH (08:49)
[2019-10-14] MEDS: SERTRALINE 50 MG TABLET. PO SCH (08:50)
[2019-10-14] MEDS: FERROUS SULFATE 325 MG TABLET. PO SCH (08:50)
[2019-10-14] MEDS: QUEtiapine 25 MG TABLET. PO SCH ×2 (08:50→17:00)
[2019-10-14] MEDS: ATENOLOL 25 MG TABLET PO SCH ×2 (08:50→20:34)
[2019-10-14] MEDS: ALPRAZolam 0.5 MG TABLET PO PRN (12:51)
[2019-10-14] MEDS: ACETAMINOPHEN 325 MG TABLET PO PRN (12:51)
[2019-10-14 16:17] VITALS: BP 118/71
--- NOTE | 2019-10-14 18:11 | NUR ---
Pt very cheerful in am. Told staff from now on she was going to do whatever she is told so she can get better and go home. At lunch pt was tearful and was thinking others hated her and that's why she had to stay in her room. Informed pt it was just a precaution to keep her safe from COVID. Pt not consolable. Xanax given. Pt better in afternoon until supper and became tearful and upset about having to eat in room alone. Zydis given.
[2019-10-14] MEDS: FAMOTIDINE 20 MG TABLET PO SCH (20:34)
[2019-10-14] MEDS: ATORVASTATIN CALCIUM 10 MG TABLET. PO SCH (20:34)
--- NOTE | 2019-10-14 22:07 | PDOC ---
Exam Note: [place] Note: Please also refer to the separate dictated note~for this date of service dictated separately.~Patient seen individually. Discussed the patient with Nursing staff reviewed the chart.~Reviewed interim history and current functioning. Reviewed vital signs,~Labs/ Radiology~and current medications noted below. Continue current treatment with the changes noted in the dictated addendum note Assessment: Vital Signs/I&O: Vital Signs Date Time Temp Pulse Resp B/P (MAP) Pulse Ox O2 Delivery O2 Flow Rate FiO2 10/14/19 20:34 66 118/71 10/14/19 16:17 97.3 18 95 Room Air I & O 10/13/19 10/13/19 10/14/19 15:00 23:00 07:00 Intake Total 720 ml 480 ml 120 ml Balance 720 ml 480 ml 120 ml Current Medications: I have reviewed the current psychotropics carefully including drug interactions. Risk benefit ratio favors no change other than as noted in my dictated progress note. 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
--- NOTE | 2019-10-14 23:19 | NUR ---
Pt restless this evening, moving between her room and the hallway. Pt disorganized and needed frequent reminders to keep her mask on. Pt A/O to name and , stating that she is at her brother's house and the year is 116. Compliant with whole medications.
[2019-10-15 05:32] VITALS: BP 163/89
[2019-10-15] MEDS: FERROUS SULFATE 325 MG TABLET. PO SCH (08:32)
[2019-10-15] MEDS: ASCORBIC ACID 500 MG TABLET PO SCH (08:32)
[2019-10-15] MEDS: ASPIRIN 325 MG TABLET PO SCH (08:32)
[2019-10-15] MEDS: SERTRALINE 50 MG TABLET. PO SCH (08:32)
[2019-10-15] MEDS: ATENOLOL 25 MG TABLET PO SCH ×2 (08:33→20:35)
[2019-10-15] MEDS: QUEtiapine 25 MG TABLET. PO SCH ×3 (08:34→17:00)
[2019-10-15] MEDS: ALPRAZolam 0.5 MG TABLET PO PRN ×2 (08:34→23:05)
--- NOTE | 2019-10-15 15:41 | NUR ---
Pt very pleasant and compliant in am. At lunch pt was tearful again and stating she "is a human being like everyone else." Unsure what pt is referring to. Pt redirected. Staff sat with pt for awhile and worked on a word puzzle. Pt calmer now.
[2019-10-15 16:17] VITALS: BP 129/70
[2019-10-15] MEDS: FAMOTIDINE 20 MG TABLET PO SCH (20:35)
[2019-10-15] MEDS: ATORVASTATIN CALCIUM 10 MG TABLET. PO SCH (20:36)
--- NOTE | 2019-10-15 22:02 | PDOC ---
Exam Note: [place] Note: Please also refer to the separate dictated note~for this date of service dictated separately.~Patient seen individually. Discussed the patient with Nursing staff reviewed the chart.~Reviewed interim history and current functioning. Reviewed vital signs,~Labs/ Radiology~and current medications noted below. Continue current treatment with the changes noted in the dictated addendum note Assessment: Vital Signs/I&O: Vital Signs Date Time Temp Pulse Resp B/P (MAP) Pulse Ox O2 Delivery O2 Flow Rate FiO2 10/15/19 20:35 71 129/70 10/15/19 19:57 97.8 92 10/15/19 16:17 20 10/14/19 16:17 Room Air I & O 10/14/19 10/14/19 10/15/19 15:00 23:00 07:00 Intake Total 480 ml 240 ml 120 ml Balance 480 ml 240 ml 120 ml Current Medications: Meds: Current Medications Medications (Trade) Dose Ordered Sig/Carlos Route PRN Reason Start Time Stop Time Status Last Admin Dose Admin Quetiapine Fumarate (SEROquel) 12.5 mg 0900,1200,1700 PO 10/15/19 09:00 10/15/19 17:00 I have reviewed the current psychotropics carefully including drug interactions. Risk benefit ratio favors no change other than as noted in my dictated progress note. 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
--- NOTE | 2019-10-15 22:28 | NUR ---
Pt sitting calmly in hallway in her wheelchair this evening. Pt needing reminders to keep her mask on. Resistive to HS medications. Pt asking "are these going to kill me?" "are these going to knock me out?" Eventually compliant with whole medications. Pt then resistive with laying down in bed. Pt again asking "are you going to kill me?" Pt eventually compliant with laying down but refused to have any covers placed over the top of her. Will continue to monitor.
[2019-10-15] MEDS: ACETAMINOPHEN 325 MG TABLET PO PRN (23:05)
--- NOTE | 2019-10-15 23:11 | NUR ---
Pt awake and stating she needs to leave for [place]. Attempted to reorient pt. Pt became suspicious asking "how do you know I'm in the hospital?" "are you tracking me?" PRN Xanax administered as well as Tylenol r/t pt's right knee pain. Will continue to monitor.
--- NOTE | 2019-10-16 04:34 | NUR ---
Pt has been highly restless, up and down throughout the night. Pt tearful, looking for her parents, stating that she needs to get to [place], and stating that she is scared to be left alone in her room. PRN Zyprexa administered. Pt currently tearful, sitting in her wheelchair in the hallway with her mask on. Will continue to monitor.
[2019-10-16 05:51] VITALS: BP 147/81
[2019-10-16 06:35] LABS: BASO # 0.1 x10^3/uL (0.0-0.2); BASO % 3 % (0-3); EOS # 0.2 x10^3/uL (0.0-0.7); EOS % 4 % (0-3); HEMATOCRIT 41.4 % (36.0-47.0); HEMOGLOBIN 13.6 g/dL (12.0-15.5); LYMPH % 24 % (24-48); MEAN CORPUSCULAR HEMOGLOBIN 31 pg (25-35); MEAN CORPUSCULAR HGB CONC 33 g/dL (31-37); MEAN CORPUSCULAR VOLUME 94 fL (79-100); MONO # 0.3 x10^3/uL (0.0-1.1); MONO % 7 % (0-9); NEUT # 2.7 x10^3uL (1.8-7.7); NEUT % 62 % (31-73); PLATELET COUNT 115 x10^3/uL (140-400); RED BLOOD COUNT 4.39 x10^6/uL (3.50-5.40); RED CELL DISTRIBUTION WIDTH 15.2 % (11.5-14.5); WHITE BLOOD COUNT 4.3 x10^3/uL (4.0-11.0)
[2019-10-16 06:42] LABS: ALBUMIN 3.6 g/dL (3.4-5.0); ALBUMIN/GLOBULIN RATIO 1.1 (1.0-1.7); GFR 52.2; POTASSIUM 4.3 mmol/L (3.5-5.1); TOTAL BILIRUBIN 1.1 mg/dL (0.2-1.0)
[2019-10-16] MEDS: ASCORBIC ACID 500 MG TABLET PO SCH (08:00)
[2019-10-16] MEDS: FERROUS SULFATE 325 MG TABLET. PO SCH (08:00)
[2019-10-16] MEDS: QUEtiapine 25 MG TABLET. PO SCH ×3 (08:00→17:00)
[2019-10-16] MEDS: ASPIRIN 325 MG TABLET PO SCH (08:00)
[2019-10-16] MEDS: ATENOLOL 25 MG TABLET PO SCH ×2 (08:00→21:10)
[2019-10-16] MEDS: SERTRALINE 50 MG TABLET. PO SCH (08:00)
--- NOTE | 2019-10-16 08:00 | NUR ---
Pt irritable and paranoid this am. Thinks staff are being mean to her. Kristopher given.
[2019-10-16] MEDS: ALPRAZolam 0.5 MG TABLET PO PRN (08:01)
[2019-10-16] MEDS: ACETAMINOPHEN 325 MG TABLET PO PRN ×2 (08:02→22:51)
--- NOTE | 2019-10-16 10:30 | NUR ---
Staff noted pt to be leaning in wc and was loopy but pleasant. Pt assisted back to bed.
--- NOTE | 2019-10-16 11:30 | NUR ---
WILMAR completed concurrent review with [employer] unit support representative. In discussing pt behaviors and all recent changes, Kandis, will plan to sent the case for a peer to peer as it appears that pt is at baseline. Unless the psychiatrist can provide more information or a game plan as to what his goals are for pt medications. Once the review comes back, Kandis will contact WILMAR and a potential denial letter will be sent to the unit fax.
--- NOTE | 2019-10-16 13:00 | NUR ---
Pt up in wc for lunch. Pleasant and more awake at this time.
--- NOTE | 2019-10-16 13:12 | NUR ---
WILMAR contacted pt son, Srini, to discuss with him pt behaviors and the concurrent review with [facility] today. With [employer] sending pt case peer to peer, WILMAR recommended that we plan everything for tomorrow as a preventative measure. If anything changes, WILMAR would be able to notify Srini of them. WILMAR recommended that once open enrollment came, that he look at getting pt on Medicare A and B plans as they are more apt to care for pt future needs and does not have certain criteria like [employer]. Pt son questioned if [facility] would be able to handle pt as is and WILMAR responded back with a firm "no". WILMAR explained that medications usually take a couple weeks to have a full effect. Considering that medications were just increased last night, it would more than likely be another week before the changes in behavior occur. WILMAR recommended that Srini start looking into getting a Memory Care placement set up as pt behaviors are more than what can be handled in [facility]. WILMAR will contact Srini this afternoon once more information is gathered.
--- NOTE | 2019-10-16 13:19 | NUR ---
WILMAR contacted Yumiko at [facility] to let her know that [facility] may be declining pt to stay on [facility] as based on the concurrent review, pt is at "her baseline". WILMAR requested time as pt just received an increase in her Seroquel last night from BID to TID. But that was not enough under insurance standards to keep pt on the unit. WILMAR informed Yumiko of the conversation had with pt son and will be able to update all parties once she hears back from Honorio. Yumiko reports that they will need a negative covoid prior to discharge. WILMAR will have nursing swab pt SHAKIRA!
[2019-10-16 16:25] VITALS: BP 137/81
--- NOTE | 2019-10-16 16:49 | NUR ---
Pt has been compliant with meds and cares. Still slightly drowsy after lunch. Resting quietly in bed at this time.
[2019-10-16] MEDS: FAMOTIDINE 20 MG TABLET PO SCH (21:10)
[2019-10-16] MEDS: ATORVASTATIN CALCIUM 10 MG TABLET. PO SCH (21:10)
--- NOTE | 2019-10-16 21:59 | PDOC ---
Exam Note: [place] Note: Please also refer to the separate dictated note~for this date of service dictated separately.~Patient seen individually. Discussed the patient with Nursing staff reviewed the chart.~Reviewed interim history and current functioning. Reviewed vital signs,~Labs/ Radiology~and current medications noted below. Continue current treatment with the changes noted in the dictated addendum note Assessment: Vital Signs/I&O: Vital Signs Date Time Temp Pulse Resp B/P (MAP) Pulse Ox O2 Delivery O2 Flow Rate FiO2 10/16/19 21:10 62 137/81 10/16/19 16:25 97.7 16 93 10/14/19 16:17 Room Air I & O 10/15/19 10/15/19 10/16/19 15:00 23:00 07:00 Intake Total 440 ml 240 ml Balance 440 ml 240 ml Labs: Laboratory Tests Test 10/16/19 06:18 White Blood Count 4.3 x10^3/uL (4.0-11.0) Red Blood Count 4.39 x10^6/uL (3.50-5.40) Hemoglobin 13.6 g/dL (12.0-15.5) Hematocrit 41.4 % (36.0-47.0) Mean Corpuscular Volume 94 fL (79-100) Mean Corpuscular Hemoglobin 31 pg (25-35) Mean Corpuscular Hemoglobin Concent 33 g/dL (31-37) Red Cell Distribution Width 15.2 % (11.5-14.5) H Platelet Count 115 x10^3/uL (140-400) L Neutrophils (%) (Auto) 62 % (31-73) Lymphocytes (%) (Auto) 24 % (24-48) Monocytes (%) (Auto) 7 % (0-9) Eosinophils (%) (Auto) 4 % (0-3) H Basophils (%) (Auto) 3 % (0-3) Neutrophils # (Auto) 2.7 x10^3uL (1.8-7.7) Lymphocytes # (Auto) 1.0 x10^3/uL (1.0-4.8) Monocytes # (Auto) 0.3 x10^3/uL (0.0-1.1) Eosinophils # (Auto) 0.2 x10^3/uL (0.0-0.7) Basophils # (Auto) 0.1 x10^3/uL (0.0-0.2) Sodium Level 144 mmol/L (136-145) Potassium Level 4.3 mmol/L (3.5-5.1) Chloride Level 107 mmol/L (98-107) Carbon Dioxide Level 31 mmol/L (21-32) Anion Gap 6 (6-14) Blood Urea Nitrogen 25 mg/dL (7-20) H Creatinine 1.0 mg/dL (0.6-1.0) Estimated GFR (Cockcroft-Gault) 52.2 BUN/Creatinine Ratio 25 (6-20) H Glucose Level 92 mg/dL (70-99) Calcium Level 9.0 mg/dL (8.5-10.1) Total Bilirubin 1.1 mg/dL (0.2-1.0) H Aspartate Amino Transferase (AST) 19 U/L (15-37) Alanine Aminotransferase (ALT) 26 U/L (14-59) Alkaline Phosphatase 58 U/L (46-116) Total Protein 7.0 g/dL (6.4-8.2) Albumin 3.6 g/dL (3.4-5.0) Albumin/Globulin Ratio 1.1 (1.0-1.7) Current Medications: I have reviewed the current psychotropics carefully including drug interactions. Risk benefit ratio favors no change other than as noted in my dictated progress note. 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
[2019-10-16] MEDS: ALPRAZolam 0.25 MG TABLET PO PRN (22:50)
--- NOTE | 2019-10-16 23:54 | NUR ---
Pt highly restless this evening. Pt delusional, disorganized and states she is scared. Pt attempting to climb out of bed setting bed alarm off numerous times. PRN Zyprexa administered with HS medications. At 2300, pt attempted to climb out of bed again and stated she had knee pain. PRN Tylenol and Xanax administered at that time. Will continue to monitor.
[2019-10-17] MEDS ORDERED: MAG-95 PO (01:32)
[2019-10-17] MEDS ORDERED: MAGN24003 PO (01:32)
[2019-10-17] MEDS ORDERED: METH28OI2 TP (01:33)
[2019-10-17] MEDS ORDERED: QUET25TA5 PO (01:34)
[2019-10-17] MEDS ORDERED: OLAN5TAB99 PO (01:34)
[2019-10-17] MEDS ORDERED: SERT50TA PO (01:35)
[2019-10-17 05:58] VITALS: BP 154/71
--- NOTE | 2019-10-17 07:21 | PDOC ---
Exam Note: [place] Note: This note is a late entry for 10/14/2019 covers elements not covered in my initial note. Subjective: The patient was evaluated face to face in the evening of 10/14/2019 with Anjana STEWART. The patient had a good night. She seems much calmer, appropriate, and seemed to even remember my name to a certain extent. She did well in the morning. However, later in the afternoon she was getting somewhat more paranoid, anxious, delusional and we will go ahead and add Seroquel 12.5 mg at noon. Lunch time she was irritable. Received Xanax and Tylenol in the evening, somewhat abrasive with staff about her medications, but took it later. Review of Systems: Ambulation impaired in wheelchair. No CV, , pulmonary, eye system symptoms on review. Mental Status Exam: Oriented to herself and situation. Speech is coherent, has some latency. Abstraction is fair. Computation is impaired. Language function intact. Mood and affect showing improvement, less labile. Laboratory Data: Reviewed. Impression: Major depressive disorder with psychotic features. Major neurocognitive disorder early Alzheimer, vascular with delusion, depression. Rest unchanged. Plan: No change from initial note but given the fact that she gets more agitated, paranoid by the early evening we will go ahead and add Seroquel 12.5 mg at noon. Assessment: Vital Signs/I&O: Vital Signs Date Time Temp Pulse Resp B/P (MAP) Pulse Ox O2 Delivery O2 Flow Rate FiO2 10/17/19 05:58 97.8 63 18 154/71 (98) 93 10/14/19 16:17 Room Air I & O 10/16/19 10/16/19 10/17/19 15:00 23:00 07:00 Intake Total 540 ml 80 ml Balance 540 ml 80 ml Current Medications: Meds: Current Medications Medications (Trade) Dose Ordered Sig/Carlos Route PRN Reason Start Time Stop Time Status Last Admin Dose Admin Alprazolam (Xanax) 0.25 mg PRN BID PRN PO ANXIETY / AGITATION 10/16/19 16:45 10/16/19 22:50 I have reviewed the current psychotropics carefully including drug interactions. Risk benefit ratio favors no change other than as noted in my dictated progress note. 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
--- NOTE | 2019-10-17 07:52 | PDOC ---
Exam Note: [place] Note: This note is a late entry for 10/15/2019 covers elements not covered in my initial note. Subjective: The patient was evaluated on telehealth rounds in the evening of 10/15/2019 with Chaz South RN. Nursing report with Anjana STEWART. She remains confused, but keeping her mask on when she comes out in the hallway otherwise, pleasant, better today with increased Seroquel. Review of Systems: Ambulation impaired in wheelchair. No CV, , pulmonary, eye, ENT system symptoms on review. Reliability poor. Mental Status Exam: Oriented to herself. Insight and judgment, recent and remote memory, attention and concentration is poor consistent with her diagnoses. In fact she seems a little more oriented as her anxiety and mood lability have improved. Laboratory Data: Reviewed. Impression: Major depressive disorder with psychotic features. Major neurocognitive disorder early Alzheimer, vascular with delusion, depression. Rest unchanged. Plan: Continue psychotropics from initial note. Assessment: Vital Signs/I&O: Vital Signs Date Time Temp Pulse Resp B/P (MAP) Pulse Ox O2 Delivery O2 Flow Rate FiO2 10/17/19 05:58 97.8 63 18 154/71 (98) 93 10/14/19 16:17 Room Air I & O 10/16/19 10/16/19 10/17/19 15:00 23:00 07:00 Intake Total 540 ml 80 ml Balance 540 ml 80 ml Current Medications: Meds: Current Medications Medications (Trade) Dose Ordered Sig/Carlos Route PRN Reason Start Time Stop Time Status Last Admin Dose Admin Alprazolam (Xanax) 0.25 mg PRN BID PRN PO ANXIETY / AGITATION 10/16/19 16:45 10/16/19 22:50 I have reviewed the current psychotropics carefully including drug interactions. Risk benefit ratio favors no change other than as noted in my dictated progress note. 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
[2019-10-17] MEDS: ASPIRIN 325 MG TABLET PO SCH (07:58)
[2019-10-17] MEDS: QUEtiapine 25 MG TABLET. PO SCH ×2 (07:58→12:00)
[2019-10-17] MEDS: ATENOLOL 25 MG TABLET PO SCH ×2 (07:58→20:49)
[2019-10-17] MEDS: SERTRALINE 50 MG TABLET. PO SCH (07:58)
[2019-10-17] MEDS: FERROUS SULFATE 325 MG TABLET. PO SCH (07:58)
[2019-10-17] MEDS: ASCORBIC ACID 500 MG TABLET PO SCH (07:58)
--- NOTE | 2019-10-17 09:20 | NUR ---
WILMAR left a message for Kandis at [facility] to contact WILMAR re: pt status. As of yesterday when WILMAR left, no letter had been faxed denying pt continued stay. WILMAR was not sure if the peer to peer had been completed and wished to check the status of pt claim.
--- NOTE | 2019-10-17 09:44 | NUR ---
SW returned call to pt son, Srini, who report that he found a [employer] A/B card for his mom, dating since 1995. SW explained that when a person is admitted, we run their social security through the [employer] system. Somewhere down the line, pt probably had Medicare A/B and then switched it to [employer]. WILMAR explained that these companies will tell you they have the same Medicare advantages but that is incorrect. Srini gave SW the number on the card and asked that SW give them a call to see if the benefit has .
--- NOTE | 2019-10-17 13:00 | NUR ---
Pt in room. Pt upset she could not come out of room without mask and started throwing her potatoes off lunch tray. PRN given.
--- NOTE | 2019-10-17 15:37 | NUR ---
WILMAR contacted pt son, Srini to let him know that pt was denied by [employer] despite the peer to peer that was completed by the psychiatrist this AM. SW also discussed further information about pt insurance and assured pt son that she does not have Medicare A/B coverage. WILMAR will set up transport for pt as the family is not sure about picking pt up due to all the covoid concerns. WILMAR will follow up with this and also contact [facility].
--- NOTE | 2019-10-17 15:44 | NUR ---
WILMAR contacted Yumiko at [facility] to let her know that pt was denied despite the peer to peer. Yumiko will get everything together for pt and has requested that pt records be faxed over as well as the negative covoid test. WILMAR will set up transport and get everything set up for tomorrow AM.
[2019-10-17 16:17] VITALS: BP 138/94
--- NOTE | 2019-10-17 18:30 | NUR ---
Pt up in wc for meals. Has been intermittently tearful , paranoid and irritable. Dr Allen increased Pt has been compliant with meds. dose of Seroquel.
[2019-10-17] MEDS: FAMOTIDINE 20 MG TABLET PO SCH (20:49)
[2019-10-17] MEDS: ATORVASTATIN CALCIUM 10 MG TABLET. PO SCH (20:49)
--- NOTE | 2019-10-17 22:09 | PDOC ---
Exam Note: [place] Note: Please also refer to the separate dictated note~for this date of service dictated separately.~Patient seen individually. Discussed the patient with Nursing staff reviewed the chart.~Reviewed interim history and current functioning. Reviewed vital signs,~Labs/ Radiology~and current medications noted below. Continue current treatment with the changes noted in the dictated addendum note Assessment: Vital Signs/I&O: Vital Signs Date Time Temp Pulse Resp B/P (MAP) Pulse Ox O2 Delivery O2 Flow Rate FiO2 10/17/19 20:49 78 138/94 10/17/19 16:17 98.3 19 96 Room Air I & O 10/16/19 10/16/19 10/17/19 15:00 23:00 07:00 Intake Total 540 ml 80 ml Balance 540 ml 80 ml Current Medications: I have reviewed the current psychotropics carefully including drug interactions. Risk benefit ratio favors no change other than as noted in my dictated progress note. 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
--- NOTE | 2019-10-18 00:06 | NUR ---
Nursing Note: Location of Patient during Assessment: Pt lying in bed with eyes closed. Behaviors Mood and Affect this shift: Pt calm, pleasant, and cooperative. Medication Compliant: Compliant with medications administered whole. Assessment Compliant: Cooperative and compliant with assessment. Response After Interventions: Pt calm, pleasant, and interactive.
[2019-10-18 06:41] VITALS: BP 176/73
--- NOTE | 2019-10-18 07:22 | PDOC ---
Exam Note: [place] Note: This note is a late entry for 10/16/2019 covers elements not covered in my initial note. Subjective: The patient was evaluated face to face in the evening 10/16/2019 with Anjana STEWART. She remains somewhat paranoid in the morning, thinks people hate her. She was somewhat sedated after the Xanax and we will reduce the p.r.n. Xanax 0.5 mg b.i.d. p.r.n. to 0.25 mg b.i.d. p.r.n. consequent to sedation with 0.5 mg. Review of Systems: Ambulation impaired in wheelchair. No CV, , pulmonary, eye system symptoms on review. Reliability poor. Mental Status Exam: Oriented to herself. At times speech is coherent, has some latency. Abstraction is fair. Computation is impaired. Language function intact. Attention span is short. Mood and affect withdrawn, at times little more labile but the aggression she was showing 2 to 3 days back seems to have subsided. Laboratory Data: Reviewed. Impression: Major depressive disorder with psychotic features. Major neurocognitive disorder early Alzheimer, vascular with delusion, depression. Rest unchanged. Plan: Continue psychotropics from initial note. We will reduce Xanax p.r.n. due to sedation. Maintain Zoloft 50 mg a day, Seroquel 12.5 mg b.i.d. We may need to increase this depending on her agitation. [employer] insurance denied further coverage and we will have a peer review morning of 10/16 to assess this. Assessment: Vital Signs/I&O: Vital Signs Date Time Temp Pulse Resp B/P (MAP) Pulse Ox O2 Delivery O2 Flow Rate FiO2 10/18/19 06:41 97.4 70 20 176/73 (107) 96 10/17/19 16:17 Room Air I & O 10/17/19 10/17/19 10/18/19 15:00 23:00 07:00 Intake Total 600 ml 320 ml Balance 600 ml 320 ml Current Medications: I have reviewed the current psychotropics carefully including drug interactions. Risk benefit ratio favors no change other than as noted in my dictated progress note. 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
--- NOTE | 2019-10-18 07:36 | PDOC ---
Exam Note: [place] Note: This note is a late entry for 10/17/2019 covers elements not covered in my initial note. Subjective: The patient was evaluated on telehealth rounds in the evening of 10/17/2019 because of the COVID-19 pandemic restrictions with [facility] nursing aid. Nursing report was with Anjana STEWART. She slept 7-1/2 hours previous night. At times she has been paranoid, tearful at times threw her food on the floor. Seroquel is 12.5 mg b.i.d. In fact Seroquel had been increased to 12.5 mg t.i.d. We will increase 25 mg in the morning and 12.5 mg twice a day. Also had a [id number] review with Dr. Bear, psychiatrist with [facility] and the patient was not approved for any further inpatient hospitalization. Once the patient is COVID negative, she will return to facility on 10/17. Review of Systems: Ambulation impaired in wheelchair. No CV, , pulmonary, eye, ENT system symptoms on review. Mental Status Exam: Oriented to herself and situation. Speech is coherent. Abstraction is fair. Computation is impaired. Language function is intact. Attention span is short. Mood and affect quite pleasant as I met with her individually. Other times she gets a little more paranoid and labile. Laboratory Data: Reviewed. Impression: Major depressive disorder with psychotic features. Major neurocognitive disorder early Alzheimer, vascular with delusion, depression. Rest unchanged. Plan: As mentioned above with possible discharge on 10/17. Assessment: Vital Signs/I&O: Vital Signs Date Time Temp Pulse Resp B/P (MAP) Pulse Ox O2 Delivery O2 Flow Rate FiO2 10/18/19 06:41 97.4 70 20 176/73 (107) 96 10/17/19 16:17 Room Air I & O 10/17/19 10/17/19 10/18/19 15:00 23:00 07:00 Intake Total 600 ml 320 ml Balance 600 ml 320 ml Current Medications: I have reviewed the current psychotropics carefully including drug interactions. Risk benefit ratio favors no change other than as noted in my dictated progress note. 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
[2019-10-18 08:36] VITALS: BP 176/73
[2019-10-18] MEDS: ASPIRIN 325 MG TABLET PO SCH (08:36)
[2019-10-18] MEDS: SERTRALINE 50 MG TABLET. PO SCH (08:36)
[2019-10-18] MEDS: ASCORBIC ACID 500 MG TABLET PO SCH (08:36)
[2019-10-18] MEDS: FERROUS SULFATE 325 MG TABLET. PO SCH (08:36)
[2019-10-18] MEDS: ATENOLOL 25 MG TABLET PO SCH (08:36)
[2019-10-18] MEDS: ALPRAZolam 0.25 MG TABLET PO PRN (08:37)
[2019-10-18] MEDS ORDERED: QUEtiapine 25 MG TABLET. PO SCH ×2 (09:00→12:00)
--- NOTE | 2019-10-18 09:17 | NUR ---
[facility] Social Work Discharge Planning Form Patient Name LIZZY MOJICA V Admit Date: 10/10/2019 DISCHARGE PLAN Discharge Destination: [facility] Assessment: n/a Transportation: [facility] to transport on 10/18/19, 11am excelsior picker time. Special Instructions/Notes: Upon return to [facility], schedule f/u appointment with PCP in 7-10 days. Lizzy would benefit from a memory care unit, continue discussions with family about the possibility of a transfer to dementia care. DISCHARGE TO FACILITY Facility: [facility] Address: [address] [place] [address] Contact Name: JEANINE Calderon PCP: Dr. Foote [phone], (fax) Psychiatrist: Bhumika
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
--- NOTE | 2019-10-18 11:20 | NUR ---
Transition Record was faxed to follow-up provider with the following elements: Reason for admission, procedures, tests, principal diagnosis, pending studies, patient instructions, 14/09 contact information for unit, phone number to obtain pending test results, plan for follow-up care, physician follow-up, advanced directive information, and medication list with dose, duration and instructions. This information was included in the following documents: History and physical, lab results, study results, progress notes, social work planning form, DC instruction form, patient visit summary, and medication reconciliation form. Date & time record faxed: 10/18/19 0040 Record faxed to: [facility] Record discussed with/ report given to: [facility] written report sent via fax, called facility and left message on voice mail for 1st floor nursing station.
--- NOTE | 2019-10-18 22:07 | PDOC ---
Exam Note: [place] Note: Please also refer to the separate dictated note~for this date of service dictated separately.~Patient seen individually. Discussed the patient with Nursing staff reviewed the chart.~Reviewed interim history and current functioning. Reviewed vital signs,~Labs/ Radiology~and current medications noted below. Continue current treatment with the changes noted in the dictated addendum note Assessment: Vital Signs/I&O: Vital Signs Date Time Temp Pulse Resp B/P (MAP) Pulse Ox O2 Delivery O2 Flow Rate FiO2 10/18/19 08:36 70 176/73 10/18/19 06:41 97.4 20 96 10/17/19 16:17 Room Air I & O 10/17/19 10/17/19 10/18/19 15:00 23:00 07:00 Intake Total 600 ml 320 ml Balance 600 ml 320 ml Current Medications: Meds: Current Medications Medications (Trade) Dose Ordered Sig/Carlos Route PRN Reason Start Time Stop Time Status Last Admin Dose Admin Quetiapine Fumarate (SEROquel) 25 mg DAILY PO 10/18/19 09:00 10/18/19 11:25 DC 10/18/19 08:36 I have reviewed the current psychotropics carefully including drug interactions. Risk benefit ratio favors no change other than as noted in my dictated progress note. 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
--- NOTE | 2019-10-19 23:46 | DS ---
DATE OF DISCHARGE: 10/18/2019 This late entry 10/18/2019 covers elements not covered in my initial note. IDENTIFYING DATA: The patient is an 89-year-old female referred to us from [facility] on account of worsening depression, being tearful, delusional thinking, she needs to go live with her parents. She has been exit seeking, threatening to take her wheelchair down the stairs. She is agitated. Thought staff are lying to her having marked insomnia, defecated on the wheelchair. She was crying out "nobody loves me. My hates me." Repeatedly she was ramming her wheelchair against the door, very physically aggressive towards staff, refusing to eat and drink, believes she was being poisoned. She was admitted with a diagnosis of major depressive disorder with psychotic features and mild cognitive impairment versus major neurocognitive disorder, Alzheimer's, vascular with delusion, and depression. SIGNIFICANT FINDINGS AND CLINICAL COURSE: Following admission, the patient was seen daily individually by myself from a psychiatric standpoint, medical followup per Dr. Coates/Dr. Patterson The patient remained extremely agitated, initially paranoid, psychotic ramming her wheelchair against the nursing station doors, banging on doors, paranoid, had to be in the [facility]. Adjustments were made in her psychotropics. She seemed to respond to a combination of Zoloft 50 mg a day, Seroquel 25 mg a.m. and 12.5 mg at noon and 5 p.m., Xanax p.r.n., Zyprexa p.r.n. REVIEW OF SYSTEMS: Prior to discharge on 10/18/2019, ambulation impaired, in wheelchair. No CV, , pulmonary, eye, ENT system symptoms on review. MENTAL STATUS EXAM: Oriented to herself and situation. Speech is coherent, less pressured. Abstraction fair, computation impaired, language function intact, attention span short. Mood and affect less depressed, less labile. LABORATORY DATA: Reviewed. No suicidal ideation at discharge. FINAL DIAGNOSES: Major depressive disorder with psychotic features, mild cognitive impairment versus major neurocognitive disorder, Alzheimer's, vascular with delusion, depression; anxiety disorder, unspecified; impulse control disorder, unspecified. PLAN: No change from initial note. DISCHARGE INSTRUCTIONS: Psychiatric and medical followup at the long-term. Time for discharge day management greater than 30 minutes. MAN Flynn DIXON MD DR: ALEXANDER/alvaro JOB#: [id number] / [id number]
--- NOTE | 2019-10-23 14:22 | NUR ---
WILMAR contacted Yumiko, nurse at [facility], to inform that Lizzy may have had a potential Covid exposure, the day prior to her discharge. Yumiko expressed that Lizzy is on a 14 day quarantine, standard readmission protocol. Yumiko also stated that Lizzy will be moving to the [facility] for memory care on 10/24/19 and that she will communicate this information to the [facility] as well.
== END 2019-10-18 11:00 | DRG 885 ==
LOC: GEROPSY 09:29
PROVIDERS: ADMIT Psychiatry & Neurology Psychiatry; ATTEND Psychiatry & Neurology Psychiatry
DX: F32.3 Major depressive disorder, single episode, severe with psychotic features (principal); F02.81 Dementia in other diseases classified elsewhere, unspecified severity, with behavioral disturbance; F01.51 Vascular dementia, unspecified severity, with behavioral disturbance; G30.9 Alzheimer's disease, unspecified; D64.9 Anemia, unspecified; D69.6 Thrombocytopenia, unspecified; E78.5 Hyperlipidemia, unspecified; F41.9 Anxiety disorder, unspecified; F63.9 Impulse disorder, unspecified; I10 Essential (primary) hypertension; K21.9 Gastro-esophageal reflux disease without esophagitis; Z20.828 Contact with and (suspected) exposure to other viral communicable diseases
CPT/HCPCS: 36415; 70450; 80053; 80061; 82306; 82607; 83036; 83540; 83550; 83735; 84436; 84443; 84480; 85025; 86592; U0003-CS